=== PATIENT | female | born 1980 ===

== ENCOUNTER 2016-09-27 00:59 | Emergency (ER) | payer MEDICAID, OTHER ==
[~2016-09-27] VITALS: Ht 162.6 cm; Wt 61.4 kg
[~2016-09-27 00:59] MED LIST: AMOX1TAB11 PO; CIPR250T3 PO; OXCA300T2 PO; OXYC1TAB24 PO
[2016-09-27 01:04] VITALS: BP 125/79; PULSE 96; RESP 16; O2SAT 99
== END 2016-09-27 01:43 | disposition left against medical advice (07) ==
LOC: SED 00:59
DX: L02.211 Cutaneous abscess of abdominal wall (principal); Z53.21 Procedure and treatment not carried out due to patient leaving prior to being seen by health care provider

== ENCOUNTER 2017-01-24 23:11 | Emergency (ER) | payer OTHER ==
[~2017-01-24] VITALS: Ht 162.6 cm; Wt 68.0 kg
[2017-01-24 23:40] VITALS: BP 132/80; PULSE 93; RESP 16; O2SAT 98
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
[2017-01-25] MEDS ORDERED: OXcarbazepine 300 mg Tablet PO ONE (00:30)
[2017-01-25] MEDS ORDERED: OXCA600T PO (00:47)
[2017-01-25 01:29] VITALS: BP 124/79; PULSE 88; RESP 16; O2SAT 99
== END 2017-01-25 01:30 | disposition home or self-care (01) ==
LOC: SED 23:28
DX: Z76.0 Encounter for issue of repeat prescription (principal); F17.200 Nicotine dependence, unspecified, uncomplicated

== ENCOUNTER 2017-03-06 23:58 | Emergency (ER) | payer OTHER ==
[~2017-03-06] VITALS: Ht 162.6 cm; Wt 68.2 kg
[~2017-03-06 23:58] MED LIST changes: +OXCA600T PO
[2017-03-07 00:09] VITALS: BP 116/78; PULSE 88; RESP 16; O2SAT 100
--- NOTE | 2017-03-07 00:16 | ED.REPORT ---
HPI-General Illness Date of Service Mar 07, 2017 ED Provider: Ramo Tavarez MD The patient is a 36 year old female who presents to the ED requesting a refill of her seizure medication, oxcarbazepine. She usually takes 1200mg 2x/day for her seizures and has been out of it for a couple days. She was "not feeling very good tonight" so she reported to the ED. She has an appointment scheduled with her neurologist in the next week. Pt has had had seizures for 11 years and most recently one month ago. Nursing Notes Stated Complaint: NEED SEIZURE MEDS Chief Complaint: Seizure Nursing Notes Reviewed: Yes Allergies: Coded Allergies: No Known Allergies (Verified , 07/14/16) Scheduled Amoxicillin/Clav K 500-125 mg (Augmentin 500) 1 Tab Tab 1 TABLET PO BID Ciprofloxacin (Ciprofloxacin) 250 Mg Tablet 500 MG PO BID Oxcarbazepine (Oxcarbazepine) 300 Mg Tablet 1,200 MG PO BID Oxcarbazepine (Oxcarbazepine) 600 Mg Tablet 1,200 MG PO BID Oxcarbazepine (Oxcarbazepine) 600 Mg Tablet 1,200 MG PO BID Scheduled PRN oxyCODONE-Acetaminophen 5-325 mg (oxyCODONE-Acetaminophen 5-325 mg) 1 Each Tablet 1 TAB PO Q4H PRN PRN For Pain General Time Seen by MD: 00:15 Chief Complaint Medication refill Hx Obtained From: Patient Arrived By: Walk-in Sudden in Onset?: Yes Onset Occurred: 3 days ago Context of Onset: Ran out of medication Symptom Duration: Since onset Severity: Current: No pain currently Recent Healthcare: No recent doctor visit, No recent hospitalization Similar Sx Previous: Yes Past Medical History Past Medical History Seizure disorder IVDA Anxiety UTI Past Surgical History Reports: Smoking History Current Every Day Smoker Social History Alcohol Use: Denies alcohol use Drug Use: IV drugs, Meth, THC Other Social History: Good social support Occupation lives by self, no work or school Ambulatory Status Independent Review of Systems requests medication refill Full Review of Systems Neurologic: Denies: Change LOC, Confusion, Dizziness, Headache, Lightheaded, Numbness, Syncope Complete sys rev & neg: except as marked. Physical Exam Vital Signs Vital Signs Date Time Temp Pulse Resp B/P Pulse Ox O2 Delivery O2 Flow Rate FiO2 03/07/17 01:18 37.1 82 16 118/80 99 Room Air 03/07/17 00:09 37.2 88 16 116/78 100 Room Air Initial VS: Reviewed General/Constitutional: Awake, Alert, No acute distress, Cooperative, Not toxic appearing Head / Eyes: Atraumatic, Normocephalic, PERRL, EOMI ENT: Atraumatic, Airway patent, Mucous membranes moist Neck: Atraumatic, Supple Respiratory / Chest: Atraumatic, Breath sounds NL, Breath sounds = bilat, No respiratory distress Re-Eval/Medical Decision Med Decision/Clinical Course The patient is a 36 year old female who presents to the ED requesting a refill of her seizure medication, oxcarbazepine. She usually takes 1200mg 2x/day for her seizures and has been out of it for a couple days. She was "not feeling very good tonight" so she reported to the ED. She has an appointment scheduled with her neurologist in the next week. Pt has had had seizures for 11 years and most recently one month ago. Here in the emergency department the patient is afebrile stable vital signs and examination as above. She is not having any active seizure like activity. She has no acute complaints other than needing a refill of her medication. While this is a rather high dose of oxcarbazepine it is within the normal dosing parameters. I agreed to prescribe her a 10 day supply of medication which will allow her time to follow-up with her neurologist for a refill. At this time, I feel that she is appropriate for discharge. Prior to discharge follow-up and return precautions were reviewed in detail with the patient who verbalized understanding and agreement with the plan. The patient was discharged in stable condition. Counseled Regarding: Diagnosis, Lab results, Need for follow-up, When/why to return to ED Discharge & Departure Primary Impression: Medication refill Additional Impressions: History of epilepsy Noncompliance with medication regimen Disposition: Home Discharge Condition All VS Reviewed: Yes Condition: Stable Additional Instructions: Follow up with your neurologist as planned. We are giving you a 7 day supply of oxcarbazepine. If you develop any seizure like events return to the Emergency Department for any new or worsening symptoms including fever, dizziness, headache, pain, weakness, numbness in extremities. Thank you for entrusting us with your care today. Referrals: Candice Delgado MD (PCP) Scribe Attestation Portion of this note were transcribed by Jonelle Yin. I, Dr. Tavarez, personally performed the history, physical exam, and medical decision-making: I reviewed and confirmed the accuracy for the information in the transcribed note. Signed by: jair Loredo, 03/07/17 0200 copies to: Candice Delgado MD, Beck O MD Mar 07, 2017 00:16 Jonelle Yin Mar 07, 2017 01:10
[2017-03-07] MEDS ORDERED: OXCA600T PO (01:09)
[2017-03-07] MEDS ORDERED: OXcarbazepine 300 mg Tablet PO ONE (01:10)
[2017-03-07 01:18] VITALS: BP 118/80; PULSE 82; RESP 16; O2SAT 99
== END 2017-03-07 01:19 | disposition home or self-care (01) ==
LOC: SED 23:58
DX: Z76.0 Encounter for issue of repeat prescription (principal); Z86.69 Personal history of other diseases of the nervous system and sense organs; Z91.14 Patient's other noncompliance with medication regimen; F41.9 Anxiety disorder, unspecified; F17.200 Nicotine dependence, unspecified, uncomplicated

== ENCOUNTER 2017-06-14 20:07 | Emergency (ER) | payer OTHER ==
[~2017-06-14] VITALS: Ht 162.6 cm; Wt 75.0 kg
[2017-06-14 20:13] VITALS: BP 112/72; PULSE 109; RESP 18; O2SAT 100
--- NOTE | 2017-06-14 20:49 | ED.REPORT ---
HPI-Rash / Abscess Date of Service Jun 14, 2017 ED Provider: Sudeep Philip DO The patient is a 36 year old female with a history of epilepsy, and heroin use presenting to the ED complaining of an abscess on her left hip onset 1 week ago after injecting into her leg. She also reports a skin rash in the same area. The patient denies any signs of fever. Nursing Notes Stated Complaint: ABSCESS ON LEFT HIP Chief Complaint: Skin Rash/Abscess Nursing Notes Reviewed: Yes Allergies: Coded Allergies: No Known Allergies (Verified , 06/14/17) Scheduled Amoxicillin/Clav K 500-125 mg (Augmentin 500) 1 Tab Tab 1 TABLET PO BID Ciprofloxacin (Ciprofloxacin) 250 Mg Tablet 500 MG PO BID Oxcarbazepine (Oxcarbazepine) 300 Mg Tablet 1,200 MG PO BID Oxcarbazepine (Oxcarbazepine) 600 Mg Tablet 1,200 MG PO BID Oxcarbazepine (Oxcarbazepine) 600 Mg Tablet 1,200 MG PO BID Scheduled PRN oxyCODONE-Acetaminophen 5-325 mg (oxyCODONE-Acetaminophen 5-325 mg) 1 Each Tablet 1 TAB PO Q4H PRN PRN For Pain General Time Seen by MD: 20:49 Chief Complaint Abscess (left hip) Hx Obtained From: Patient Arrived By: Walk-in Onset Occurred: 1 week ago Symptom Duration: Since onset Associated with: Denies Fever Recent Healthcare: No recent hospitalization, Recent doctor visit Similar Sx Previous: No Past Medical History Past Medical History Seizure disorder IVDA Anxiety UTI Past Surgical History Reports: Smoking History Current Every Day Smoker Social History Alcohol Use: Denies alcohol use Drug Use: IV drugs, Meth, THC Other Social History: Good social support Occupation lives by self, no work or school Ambulatory Status Independent Review of Systems Abscess on left hip Constitutional: Denies: Chills, Fever Respiratory: Denies: Shortness of breath, Wheezing GI: Denies: Vomiting Skin: Reports Rash (left hip) Complete sys rev & neg: except as marked. Neurologic: Denies: Problem walking Physical Exam Initial Vital Signs Vital Signs (First) Date Time Temp Pulse Resp B/P Pulse Ox O2 Delivery O2 Flow Rate FiO2 06/14/17 20:13 36.6 109 18 112/72 100 Room Air Initial VS: Reviewed Head / Eyes: Atraumatic, Normocephalic ENT: Mucous membranes moist Neck: Supple, Full range of motion Respiratory: Breath sounds normal, No respiratory distress Cardiovascular: Regular rate & rhythm, Heart sounds normal Abdomen / GI: Soft, Non-tender Back: No CVA tenderness Lymphatic: No lymphadenopathy Extremities: Vascular intact Neurologic: Alert, Oriented Psychiatric: Mood/affect normal General/Constitutional: Awake, Alert Skin: Warm, Dry Large 15x20 cm left proximal thigh abscess with fluctuance Procedures Incision & Drainage Abscess I & D Abscess: 3 cm incision 5 yards of 1/2 inch iodoform gauze packed Time: 21:38 Procedure Performed by: ED physician Consent / Setup / Site Prep: Consent from patient, Time-out performed, Hand hygiene observed, Stand sterile technique, Standard surgical scrub, Sterile drapes applied Location of Abscess: Left hip Skin Preparation Agent: Hibiclens - Chlorhexidine Local Anesthesia: Lidocaine 1% Procedural Sedation/Analgesia: Sedation: Ketamine (300 mg) Incised Abscess with Scalpel: #11 Pus Drained: Large, Purulent discharge, Bloody Irrigation: Yes, 250 cc Post-Procedure / Complications: Packing placed, Dressing applied, No complications, Condition improved, Tolerated procedure well, Patient stable Re-Eval/Medical Decision Med Decision/Clinical Course Patient presents with a rather extensive left upper thigh/hip abscess. She has full range of motion of the hip joint does not appear to involve the joint space. Initially labs and an IV are requested in order to give IV antibiotics and plan for possible admit given the extensive size of this abscess. However, the patient repeatedly declines IV access, blood work, or admission. She wishes to have the abscess opened and drained and discharged home on oral antibiotics. She is mildly tachycardic however is not febrile and after the procedure there seems to be adequate drainage and source control of the abscess. In place of admission, she is given 600 mg of intramuscular clindamycin as well as prescriptions for Bactrim and Vicodin. Return and follow-up precautions given. Re-Evaluation/Progress #1: Time of Eval: 20:57 Re-Evaluation/Progress Note: Patient rechecked. Discussed plan for incision and drainage procedure. Patient declines IV, lab draw, or possible admission Re-Evaluation/Progress #2: Time of Eval: 21:34 Re-Evaluation/Progress Note: Patient rechecked. Abscess incision and drainage procedure performed. Re-Evaluation/Progress #3: Time of Eval: 22:14 Re-Evaluation/Progress Note: Patient rechecked. She is more awake and recovering appropriately. Re-Evaluation/Progress #4: Time of Eval: 22:26 Re-Evaluation/Progress Note: Pateint rechecked. She is waking up. Discharge & Departure Impression: Primary Impression: Abscess of left thigh Disposition: Home Discharge Condition All VS Reviewed: Yes Condition: Improved Additional Instructions: While in the ER you were given ketamine in order to sedate you and have the abscess of your left thigh opened and drained. You were given 600 mg of clindamycin as an injection. Packing gauze was placed in the wound. Use ibuprofen as well as Vicodin for pain. Take Bactrim as prescribed. Follow-up with either your regular doctor or return to the ER in 48 hours for recheck or sooner if worse. Referrals: Candice Delgado MD (PCP) Scribe Attestation Portions of this note were transcribed by Connor Hood. I, Dr. Philip personally performed the history, physical exam and medical decision-making; I reviewed and confirmed the accuracy of the information in the transcribed note. Signed by: Umer Espinosa, 06/14/2017 copies to: Candice Delgado MD, Timothy S DO Jun 14, 2017 20:49 Jun 14, 2017 20:58
[2017-06-14] MEDS ORDERED: Ketamine 100 mg/mL 5 mL Inj IM ONE (21:00)
[2017-06-14] MEDS ORDERED: Clindamycin 150 mg/mL 2 mL Inj IM ONE (21:00)
[2017-06-14] MEDS ORDERED: _HYDROcodone/APAP 5-325 mg Tablet PO PRN (22:30)
[2017-06-15 03:37] VITALS: BP 121/69; PULSE 118; RESP 20; O2SAT 98
[2017-06-15] MEDS ORDERED: _Trimethoprim-Sulfa 160/800 mg Tablet PO SCH (08:30)
== END 2017-06-14 23:25 | disposition home or self-care (01) ==
LOC: SED 20:07
DX: L02.416 Cutaneous abscess of left lower limb (principal); F41.9 Anxiety disorder, unspecified; F17.200 Nicotine dependence, unspecified, uncomplicated; Z87.442 Personal history of urinary calculi
CPT/HCPCS: 10061; 87070; 87186; 87205; 94799; 96372; 99284; J3490

== ENCOUNTER 2017-06-17 17:47 | Emergency (ER) | payer OTHER | END 2017-06-17 19:08 | disposition left against medical advice (07) | LOC: SED 17:47 | DX: L02.91 Cutaneous abscess, unspecified (principal); Z53.29 Procedure and treatment not carried out because of patient's decision for other reasons ==

== ENCOUNTER 2017-06-17 22:05 | Emergency (ER) | payer OTHER ==
[~2017-06-17] VITALS: Ht 162.6 cm; Wt 72.7 kg
[2017-06-17 22:07] VITALS: BP 121/75; PULSE 99; RESP 16; O2SAT 98
--- NOTE | 2017-06-17 22:57 | ED.REPORT ---
HPI-Rash / Abscess Date of Service Jun 17, 2017 ED Provider: Estevan Whitten DO Pt is a 36 year old female with a history of IV heroin use and abscesses who presents to the ED for an abscess recheck today. She c/o associated pain to her left thigh where the abscess was drained. She denies any other symptoms. The pt presented to the ED on 06/14/17 for an abscess, which was drained and packed. She was instructed to return to the ED or her PCP for a recheck. Nursing Notes Stated Complaint: ABSCESS Chief Complaint: Skin Rash/Abscess Nursing Notes Reviewed: Yes Allergies: Coded Allergies: No Known Allergies (Verified , 06/17/17) Scheduled Amoxicillin/Clav K 500-125 mg (Augmentin 500) 1 Tab Tab 1 TABLET PO BID Ciprofloxacin (Ciprofloxacin) 250 Mg Tablet 500 MG PO BID Oxcarbazepine (Oxcarbazepine) 300 Mg Tablet 1,200 MG PO BID Oxcarbazepine (Oxcarbazepine) 600 Mg Tablet 1,200 MG PO BID Oxcarbazepine (Oxcarbazepine) 600 Mg Tablet 1,200 MG PO BID Scheduled PRN oxyCODONE-Acetaminophen 5-325 mg (oxyCODONE-Acetaminophen 5-325 mg) 1 Each Tablet 1 TAB PO Q4H PRN PRN For Pain General Time Seen by MD: 22:56 Chief Complaint Return visit, abscess Hx Obtained From: Patient Arrived By: Walk-in Onset Occurred: Onset unknown Symptom Duration: Since onset Location: : Other (abscess drainage site, left thigh) Quality: Painful Severity: Current: Moderate Severity: Maximum: Moderate Recent Healthcare: Recent doctor visit Similar Sx Previous: Yes Past Medical History Past Medical History Seizure disorder IVDA Anxiety UTI Abscesses Past Surgical History Reports: Smoking History Current Every Day Smoker Social History Alcohol Use: Denies alcohol use Drug Use: IV drugs, Meth, THC Other Social History: Good social support Occupation lives by self, no work or school Ambulatory Status Independent Review of Systems + abscess cavity Constitutional: Denies: Fever Respiratory: Denies: Non-productive cough Musculoskeletal: Reports: Extremity pain Complete sys rev & neg: except as marked. Physical Exam Initial Vital Signs Vital Signs (First) Date Time Temp Pulse Resp B/P Pulse Ox O2 Delivery O2 Flow Rate FiO2 06/17/17 22:07 37.3 99 16 121/75 98 Room Air Initial VS: Reviewed Head / Eyes: Atraumatic, Normocephalic Neck: Supple, Full range of motion Respiratory: Breath sounds normal, Clear to auscultation, No respiratory distress Cardiovascular: Regular rate & rhythm, Heart sounds normal, Intact distal pulses Extremities: Vascular intact, Neuro intact Neurologic: Alert, Oriented, Nonfocal Psychiatric: Mood/affect normal, Behavior normal General/Constitutional: Awake, Alert Skin: Warm, Dry Large abscess cavity that is widened and will not require additional packing. Re-Eval/Medical Decision Source of Hx: Old records Re-Evaluation/Progress : Time of Eval: 23:02 Re-Evaluation/Progress Note: Removed pt's packing with her consent. Informed pt of plan for wound dressing and plan for discharge. Informed pt of [facility] and she states that she already has plans to call tomorrow. Pt understands and agrees with plan for discharge. F/U instructions and RTER warnings given. All questions addressed. Counseled Regarding: Diagnosis, Need for follow-up, When/why to return to ED Discharge & Departure Impression: Primary Impression: Abscess of left thigh Disposition: Home Discharge Condition All VS Reviewed: Yes Condition: Stable Patient Instructions: Abscess (ED) Additional Instructions: Call [facility] tomorrow for a follow up appointment this week. Keep taking the Bactrim. Call the surgical clinic tomorrow for a follow up appointment this week. Sometimes abscess will need additional drainage. Return to the Emergency Department for any new or concerning symptoms. Referrals: Candice Delgado MD (PCP) [facility] [place] Attestation Portions of this note were transcribed by Lynsey Plummer. I, Dr. Whitten personally performed the history, physical exam and medical decision-making; I reviewed and confirmed the accuracy of the information in the transcribed note. Signed by : Umer Amin, 06/17/17. copies to: Candice Delgado MD; [facility] Todd P DO Jun 17, 2017 22:57 Lynsey Coleman Jun 17, 2017 23:14
== END 2017-06-17 23:54 | disposition home or self-care (01) ==
LOC: SED 22:05
DX: L02.416 Cutaneous abscess of left lower limb (principal); F41.9 Anxiety disorder, unspecified; F11.10 Opioid abuse, uncomplicated; F17.200 Nicotine dependence, unspecified, uncomplicated